=== PATIENT | female | born 1970 | race Two or more races ===

== ENCOUNTER 2018-11-19 09:37 | Emergency (ER) | payer SELFPAY ==
[2018-11-19 10:02] VITALS: BP 116/72; PULSE 83; TEMP 98.6; BMI 25.0
[2018-11-19] MEDS ORDERED: IBUPROFEN 400 MG TABLET (FP) PO ONE ×2 (10:44→10:55)
--- NOTE | 2018-11-19 10:44 | PDOC ---
History of Present Illness - General Chief Complaint: Injury Stated Complaint: INJURY Time Seen by Provider: 11/19/18 10:29 History Source: Patient Exam Limitations: No Limitations - History of Present Illness Initial Comments: 11/19/18 12:01 Pt is a 48 y/o F who presents to the ED with L ankle pain. Pt states that she was walking when she lost her balance and twisted her L ankle yesterday. She states that it hurts to walk and she is unable to put a shoe on because of the swelling. States that she feels tingling in her L foot. Denies fevers ,chills, numbness and weakness to the affected extremity. Past History - Travel Traveled outside of the country in the last 30 days: No Close contact w/someone who was outside of country & ill: No - Past Medical History Allergies/Adverse Reactions: Allergies Allergy/AdvReac Type Severity Reaction Status Date / Time No Known Allergies Allergy Verified 11/19/18 10:02 Home Medications: Ambulatory Orders NK [No Known Home Medication] 11/19/18 COPD: No CHF: No Liver Disease: No - Surgical History GI Surgery: No - Immunization History Immunization Up to Date: No - Suicide/Smoking/Psychosocial Hx Smoking History: Never smoked Have you smoked in the past 12 months: No Information on smoking cessation initiated: No Hx Alcohol Use: No Drug/Substance Use Hx: No Review of Systems - Review of Systems Able to Perform ROS?: Yes Comments:: 11/19/18 11:52 CONSTITUTIONAL: Absent: fever, chills, diaphoresis, generalized weakness, malaise, loss of appetite HEENT: MUSCULOSKELETAL: Present: L ankle pain tingling, and swelling Absent: myalgia SKIN: Absent: rash, itching, pallor HEMATOLOGIC/IMMUNOLOGIC: Absent: easy bleeding, easy bruising, lymphadenopathy, frequent infections ENDOCRINE: Absent: unexplained weight gain, unexplained weight loss, heat intolerance, cold intolerance NEUROLOGIC: Absent: headache, focal weakness or paresthesias, dizziness, unsteady gait, seizure, mental status changes, bladder or bowel incontinence PSYCHIATRIC: Absent: anxiety, depression, suicidal or homicidal ideation, hallucinations. Is the patient limited Slovenian proficient: No *Physical Exam - Vital Signs Last Vital Signs Temp Pulse Resp BP Pulse Ox 98.6 F 83 16 116/72 97 11/19/18 09:59 11/19/18 09:59 11/19/18 09:59 11/19/18 09:59 11/19/18 09:59 - Physical Exam Comments: 11/19/18 11:53 GENERAL: Well developed, well nourished. Awake and alert. No acute distress. NECK: Supple. Full ROM. No JVD. Carotid pulses 2+ and symmetric, without bruits. No thyromegaly. No lymphadenopathy. MUSCULOSKELETAL TTP of the heel, medial and lateral malleolus of the L ankle with associated swelling. Decreased ROM of the ankle d/t pain. Normal range of motion at all joints. No bony deformities or tenderness. No CVA tenderness. EXTREMITIES: Swelling to the L ankle. No cyanosis. No clubbing. No edema. No calf tenderness. SKIN: Bruising to the L ankle present. Warm and dry. Normal capillary refill. No rashes. No jaundice. NEUROLOGICAL: Alert, awake, appropriate. Cranial nerves 2-12 intact. No deficits to light touch and temperature in face, upper extremities and lower extremities. No motor deficits in the in face, upper extremities and lower extremities. Normoreflexic in the upper and lower extremities. Normal speech. Toes are down- going bilaterally. Gait is normal without ataxia. PSYCHIATRIC: Cooperative. Good eye contact. Appropriate mood and affect. Moderate Sedation - Procedure Monitoring Vital Signs: Procedure Monitoring Vital Signs Temperature 98.6 F 11/19/18 09:59 Pulse Rate 83 11/19/18 09:59 Respiratory Rate 16 11/19/18 09:59 Blood Pressure 116/72 11/19/18 09:59 O2 Sat by Pulse Oximetry (%) 97 11/19/18 09:59 Medical Decision Making - Medical Decision Making 11/19/18 12:03 Pt is a 48 y/o F who presents with one day of L ankle pain On exam, L ankle is swollen and tender X-ray of the ankle is negative for fracture; most likely a sprain Ben wrap and air cast applied DC home; pt following up with her ortho this afternoon I discussed the physical exam findings, ancillary test results and final diagnoses with the patient. I answered all of the patient's questions. The patient was satisfied with the care received and felt comfortable with the discharge plan and treatment plan. The Patient agrees to follow up with the primary care physician/specialist within 24-72 hours. Return precautions were given. *DC/Admit/Observation/Transfer Diagnosis at time of Disposition: Ankle sprain Qualifiers: Encounter type: initial encounter Involved ligament of ankle: unspecified ligament Laterality: left Qualified Code(s): S93.402A - Sprain of unspecified ligament of left ankle, initial encounter - Discharge Dispostion Disposition: HOME Condition at time of disposition: Stable Decision to Admit order: No - Referrals Referrals: Wilberto Williamson MD [Staff Physician] - - Patient Instructions Printed Discharge Instructions: DI for Ankle Sprain Additional Instructions: You sprained your ankle. Your x-ray was negative for broken bones. Please keep your ankle elevated while at rest above the level of your heart to reduce swelling. You may take Motrin 800 mg every 8 hours to help reduce pain and swelling. Please ice the area for 20 minute intervals at least 5 times a day to help reduce swelling. Please wear the Ben wrap. Please follow-up with orthopedics in 1 week if your symptoms are not improving. Return to the emergency department if you have worsening pain, or unable to walk , numbness and tingling of the foot, or had any changes in her symptoms. - Post Discharge Activity Forms/Work/School Notes: Back to Work
== END 2018-11-19 11:55 | disposition home or self-care (01) ==
LOC: JERFT 09:37
PROC: 2W3RX1Z Immobilization of Left Lower Leg using Splint (ICD-10-PCS; principal; 2018-11-19)
DX: S93.402A Sprain of unspecified ligament of left ankle, initial encounter (principal); X58.XXXA Exposure to other specified factors, initial encounter; Y93.89 Activity, other specified; Y92.89 Other specified places as the place of occurrence of the external cause
CPT/HCPCS: 73560-TC-LT-FY; 73610-TC-LT-FY; 73630-TC-LT; 99281-25